=== PATIENT | female | born 1990 | race African-American/Black ===

== ENCOUNTER 2018-10-28 10:37 | Emergency (ER) | payer SELFPAY ==
[2018-10-28 10:49] VITALS: BP 108/68
--- NOTE | 2018-10-28 11:42 | ER Document Report ---
ED General - General Chief Complaint: Diarrhea Stated Complaint: DIARRHEA Time Seen by Provider: 10/28/18 11:04 TRAVEL OUTSIDE OF THE [place] IN LAST 30 DAYS: No - HPI Notes: Patient is a 28-year-old female that presents to the emergency department for chief complaint of diarrhea and constipation. Patient states her last bowel movement was 6 days ago. Today she started having small liquidy bowel movements. She is concerned that she is still constipated. She denies any abdominal pain, nausea, vomiting fevers or chills. She took milk of magnesia a few days ago to help alleviate constipation which did not improve her symptoms. She also reports pain when she has a bowel movement and bright red blood on the toilet paper after having a bowel movement. She denies any known history of hemorrhoids in the past. Past Medical History: Negative Past Surgical History: Negative Social History: Early tobacco. Denies drugs and alcohol Family History: Reviewed and noncontributory for presenting illness Allergies: Reviewed, see documented allergy list. REVIEW OF SYSTEMS: CONSTITUTIONAL : No fever No chills No diaphoresis No recent illness EENT: No vision changes No congestion No sore throat CARDIOVASCULAR: No chest pain No palpitations RESPIRATORY: No shortness of breath No cough No difficulty breathing GASTROINTESTINAL: No abdominal pain No nausea No vomiting diarrhea Constipation GENITOURINARY: No dysuria No hematuria No difficulty urinating MUSCULOSKELETAL: No back pain No leg pain No arm pain SKIN: No rashes No lesions LYMPHATIC: No swollen, enlarged glands. NEUROLOGICAL: No lightheadedness No headache No weakness No paresthesias PSYCHIATRIC: No anxiety No depression PHYSICAL EXAMINATION: Vital signs reviewed, nursing noted reviewed. GENERAL: Well-appearing, well-nourished and in no acute distress. HEAD: Atraumatic, normocephalic. EYES: Eyes appear normal, extraocular movements intact, sclera anicteric, conjunctiva are normal. ENT: nares patent, oropharynx clear without exudates. Moist mucous membranes. NECK: Normal range of motion, supple without lymphadenopathy LUNGS: Breath sounds clear to auscultation bilaterally and equal. No wheezes rales or rhonchi. HEART: Regular rate and rhythm without murmurs ABDOMEN: Soft, nontender, normoactive bowel sounds. No rebound, guarding, or rigidity. No masses appreciated. EXTREMITIES: Nontender, good range of motion, no pitting or edema. NEUROLOGICAL: No focal neurological deficits. Moves all extremities spontaneously Motor and sensory grossly intact on exam. PSYCH: Normal mood, normal affect. SKIN: Warm, Dry, normal turgor, no rashes or lesions noted on exposed skin - Related Data Allergies/Adverse Reactions: No Known Allergies Allergy (Verified 10/28/18 10:38) Past Medical History - Social History Smoking Status: Never Smoker Family History: Reviewed & Not Pertinent Patient has suicidal ideation: No Patient has homicidal ideation: No Renal/ Medical History: Denies: Hx Peritoneal Dialysis - Immunizations Hx Diphtheria, Pertussis, Tetanus Vaccination: Yes Physical Exam - Vital signs Vitals: Temp Pulse Resp BP Pulse Ox 98.5 F 93 14 108/68 99 10/28/18 10:48 10/28/18 10:48 10/28/18 10:48 10/28/18 10:48 10/28/18 10:48 Course - Re-evaluation Re-evalutation: 10/28/18 11:39 Vitals reviewed. Nursing notes reviewed. Patient has not had a normal bowel movement in 6 days. She is having small liquid bowel movements today which is likely stool getting around her constipation. I recommended MiraLAX and offered a dose in the emergency room which patient has declined. She did complain of bright red blood in her stool and pain with bowel movements. I offered rectal exam to evaluate for hemorrhoids or fissures which patient has declined. She has a soft nontender abdominal exam and I do not suspect bowel obstruction. She was counseled on sits baths for her rectal pain and bleeding. She is hemodynamically stable and further workup today for GI bleeding is not indicated. Patient was discharged home in stable condition. - Vital Signs Vital signs: Temp Pulse Resp BP Pulse Ox 98.5 F 93 14 108/68 99 10/28/18 10:48 10/28/18 10:48 10/28/18 10:48 10/28/18 10:48 10/28/18 10:48 Discharge - Discharge Clinical Impression: Constipation Qualifiers: Constipation type: other constipation type Qualified Code(s): K59.09 - Other constipation Condition: Stable Disposition: HOME, SELF-CARE Instructions: Constipation ([facility]) Additional Instructions: Please return to the emergency department if you have any worsening, or concern of your symptoms. Please return to the emergency department if you develop chest pain, difficulty breathing, severe abdominal pain, or ongoing vomiting. Please follow-up with your primary care physician in 2-3 days and any other recommended physicians. If prescribed, take all medications as directed. If you have any questions or concerns do not hesitate to return the emergency department for evaluation. Use MiraLAX at home as needed for constipation Forms: Return to Work Referrals: [facility] [Provider Group] - Follow up in 3-5 days
== END 2018-10-28 11:50 | disposition home or self-care (01) ==
LOC: ER 10:37
DX: K59.00 Constipation, unspecified (principal); R19.7 Diarrhea, unspecified; K92.1 Melena
CPT/HCPCS: 99283

== ENCOUNTER 2019-07-10 22:09 | Emergency (ER) | payer SELFPAY ==
[2019-07-10] MEDS ORDERED: ACETAMINOPHEN SOLN 325 MG/10.15 ML UDCUP PO ONE (22:40)
[2019-07-10] MEDS ORDERED: NORMAL SALINE 500 ML IV ONE (22:40)
[2019-07-10 23:07] LABS: ABSOLUTE BASOPHILS # (AUTO) 0.1 10^3/uL (0.0-0.2); ABSOLUTE LYMPHOCYTES (AUTO) 0.7 10^3/uL (0.5-4.7); ABSOLUTE MONOCYTES (AUTO) 0.5 10^3/uL (0.1-1.4); ABSOLUTE NEUT (AUTO) 4.9 10^3/uL (1.7-8.2); BASOPHILS % (AUTO) 0.9 % (0-2); EOSINOPHILS % (AUTO) 0.2 % (0-6); HEMATOCRIT 43.2 % (36.0-47.0); HEMOGLOBIN 14.4 g/dL (12.0-15.5); LYMPHOCYTES % (AUTO) 11.8 % (13-45); MEAN CORPUSCULAR HEMOGLOBIN 29.6 pg (27.0-33.4); MEAN CORPUSCULAR HGB CONC 33.2 g/dL (32.0-36.0); MEAN CORPUSCULAR VOLUME 89 fl (80-97); MONOCYTES % (AUTO) 8.7 % (3-13); PLATELET COUNT 258 10^3/uL (150-450); RED BLOOD COUNT 4.85 10^6/uL (3.72-5.28); RED CELL DISTRIBUTION WIDTH 14.6 % (11.5-14.0); SEGMENTED NEUTROPHILS % (AUTO) 78.4 % (42-78); TOTAL CELLS COUNTED % (AUTO) 100 %; WHITE BLOOD COUNT 6.2 10^3/uL (4.0-10.5)
[2019-07-10 23:12] LABS: APPEARANCE,URINE SLIGHTLY-CLOUDY; BILIRUBIN,URINE NEGATIVE (NEGATIVE); COLOR,URINE AMBER; GLUCOSE, URINE NEGATIVE (NEGATIVE); KETONES,URINE TRACE mg/dL (NEGATIVE); LEUKOCYTE ESTERASE,URINE TRACE (NEGATIVE); NITRITE,URINE NEGATIVE (NEGATIVE); PROTEIN,URINE 30 mg/dL (NEGATIVE); URINE SPECIFIC GRAVITY 1.029
[2019-07-10 23:24] LABS: ALBUMIN 4.3 g/dL (3.5-5.0); ALKALINE PHOSPHATASE 72 U/L (38-126); ANION GAP 12 (5-19); ASPARTATE AMINO TRANSFERASE 72 U/L (14-36); BILIRUBIN,DIRECT 0.3 mg/dL (0.0-0.4); BILIRUBIN,TOTAL 0.5 mg/dL (0.2-1.3); BLOOD UREA NITROGEN 10 mg/dL (7-20); CALCIUM 9.6 mg/dL (8.4-10.2); CARBON DIOXIDE 23 mmol/L (22-30); CHLORIDE 100 mmol/L (98-107); GLUCOSE 102 mg/dL (75-110); POTASSIUM 3.8 mmol/L (3.6-5.0); TOTAL PROTEIN 7.7 g/dL (6.3-8.2)
[2019-07-11] MEDS ORDERED: NORMAL SALINE 1000 ML 1,000 ML IV ONE (00:45)
[2019-07-11] MEDS ORDERED: IBUPROFEN 600 MG TABLET PO ONE (00:57)
--- NOTE | 2019-07-11 01:02 | ER Document Report ---
ED General - General Chief Complaint: Pain All Over Stated Complaint: PAIN Time Seen by Provider: 07/10/19 23:29 Primary Care Provider: DESHAUN MARIN [Primary Care Provider] - Follow up as needed Notes: 29-year-old generally healthy female presents the emergency department with chief complaint generalized body aches, malaise, fever since yesterday. Patient states that she started her menstrual cycle yesterday and is in culture if it is related to that. Patient denies any sick contacts. Patient states she denies h eadache or neck stiffness, denies any vision changes, complains of sore throat, denies cough, complains of shortness of breath, denies wheezing, denies chest pain, denies any nausea/vomiting/diarrhea/constipation, denies any urinary symptoms, TRAVEL OUTSIDE OF THE [place] IN LAST 30 DAYS: No - Related Data Allergies/Adverse Reactions: No Known Allergies Allergy (Verified 07/10/19 22:37) Past Medical History - Social History Smoking Status: Current Every Day Smoker Frequency of alcohol use: None Drug Abuse: None Family History: Reviewed & Not Pertinent Patient has suicidal ideation: No Patient has homicidal ideation: No Renal/ Medical History: Denies: Hx Peritoneal Dialysis - Immunizations Hx Diphtheria, Pertussis, Tetanus Vaccination: Yes Review of Systems - Review of Systems Constitutional: See HPI EENT: No symptoms reported Cardiovascular: See HPI Respiratory: See HPI Gastrointestinal: See HPI Genitourinary: See HPI Female Genitourinary: See HPI Musculoskeletal: No symptoms reported Skin: No symptoms reported Hematologic/Lymphatic: No symptoms reported Neurological/Psychological: No symptoms reported Physical Exam - Vital signs Vitals: Temp Pulse Resp BP Pulse Ox 103.1 F H 133 H 17 127/77 H 100 07/10/19 22:38 07/10/19 22:38 07/10/19 22:38 07/10/19 22:38 07/10/19 22:38 - Notes Notes: PHYSICAL EXAMINATION: Reviewed vital signs and charting by RN GENERAL: Alert, interacts well. No acute distress. HEAD: Normocephalic, atraumatic. EYES: Pupils equal and round. Extraocular movements intact. ENT: Oral mucosa moist, tongue midline. NECK: Full range of motion. Trachea midline. LUNGS: Clear to auscultation bilaterally, no wheezes, rales, or rhonchi. No respiratory distress. HEART: Regular rate of 96 and rhythm. No murmur ABDOMEN: soft, non-tender. No distention. Bowel sounds present EXTREMITIES: Moves all 4 extremities spontaneously. No edema, No cyanosis. PSYCH: Normal affect, normal mood. SKIN: Warm, sweaty, normal turgor. No rashes or lesions noted. Course - Re-evaluation Re-evalutation: 07/11/19 01:01 Overall nontoxic in appearance. I did get a rapid influenza A/P and a rapid strep. Patient was significantly tachycardic upon arrival and received Tylenol and normal saline 1 L and her heart rate came down to 116. On exam I palpated a heart rate of 96 and plan is to give her Motrin 600 mg and a second liter of fluids while her strep and influenza samples are in the lab. All lab work within normal limits, no leukocytosis, no evidence of urinary tract infection, no lab derangements. 07/11/19 02:17 Rapid strep and rapid influenza were all negative. Most likely patient has some type of viral illness possibly exacerbated by the start of her menstrual period. Her vital signs have normalized after receiving a second bag of normal saline. Her temperature has broken. At this time she is stable for discharge with strict return precautions. - Vital Signs Vital signs: Temp Pulse Resp BP Pulse Ox 100.2 F 116 H 17 127/77 H 100 07/11/19 00:01 07/11/19 00:01 07/10/19 22:38 07/10/19 22:38 07/10/19 22:38 - Laboratory Result Diagrams: 07/10/19 22:45 07/10/19 22:45 Laboratory results interpreted by me: 07/10/19 07/10/19 07/10/19 22:45 22:45 22:45 RDW 14.6 H Seg Neutrophils % 78.4 H Lymphocytes % 11.8 L Sodium 134.9 L AST 72 H Urine Protein 30 H Urine Ketones TRACE H Urine Blood LARGE H Urine Urobilinogen 4.0 H Ur Leukocyte Esterase TRACE H Discharge - Discharge Clinical Impression: Body aches Fever Qualifiers: Fever type: unspecified Qualified Code(s): R50.9 - Fever, unspecified Condition: Good Disposition: HOME, SELF-CARE Additional Instructions: You were seen in the emergency department this morning for body aches and fever. All of your lab work, strep testing, influenza testing were all normal and negative which is very reassuring. Is unclear why you are feeling this way but you are certainly mildly dehydrated. Please continue to drink lots of fluids, take Motrin 600 mg with food or milk every 6 hours and/or Tylenol 1000 mg every 6 hours for pain and body aches. You might feel ill for the next few days. If you develop high fever does not respond to Motrin and Tylenol, have intractable nausea or vomiting, have severe debilitating headache, have acute shortness of breath or chest pain, or have any other concerning symptoms please return to the emergency department for reevaluation. Referrals: [facility],NO [Primary Care Provider] - Follow up as needed
[2019-07-11 01:34] LABS: A TYPE INFLUENZA AG NEGATIVE (NEGATIVE); B INFLUENZA AG NEGATIVE (NEGATIVE)
[2019-07-11 02:23] VITALS: BP 117/63
== END 2019-07-11 02:35 | disposition home or self-care (01) ==
LOC: ER 22:09
DX: M79.10 Myalgia, unspecified site (principal); R50.9 Fever, unspecified; R53.81 Other malaise; J02.9 Acute pharyngitis, unspecified; F17.200 Nicotine dependence, unspecified, uncomplicated
CPT/HCPCS: 99283; 96360; 96361; 36415; 87070; 87880; 85025; 81025; 80053; 81001; 87804; J7030; J7040; J3490